=== PATIENT | female | born 1995 | race Caucasian/White ===

== ENCOUNTER 2018-07-26 13:46 | Emergency (ER) | payer SELFPAY ==
[~2018-07-26] VITALS: Ht 160 cm; Wt 63.5 kg
[2018-07-26] MEDS ORDERED: IV NORMAL SALINE 1000ML BAG 1,000 ML IV SCH (14:13)
[2018-07-26] MEDS ORDERED: MORPHINE SULFATE 4 MG/ML VIAL. IV ONE (14:15)
[2018-07-26] MEDS ORDERED: ONDANSETRON PF 4 MG/2 ML VIAL. IV ONE (14:15)
[2018-07-26] MEDS ORDERED: IOHEXOL 240 MG/ML 50ML VIAL. PO ONE (14:30)
[2018-07-26] MEDS ORDERED: IOHEXOL 300 MG/ML 100ML VIAL. IV ONE (14:30)
[2018-07-26] MEDS ORDERED: CONTRAST GIVEN. MC PRN (14:30)
[2018-07-26 14:36] LABS: BASO # 0.1 x10^3/uL (0.0-0.2); BASO % 1 % (0-3); EOS # 0.2 x10^3/uL (0.0-0.7); EOS % 3 % (0-3); HEMATOCRIT 46.2 % (36.0-47.0); LYMPH # 2.8 x10^3/uL (1.0-4.8); LYMPH % 30 % (24-48); MEAN CORPUSCULAR HEMOGLOBIN 32 pg (25-35); MEAN CORPUSCULAR HGB CONC 35 g/dL (31-37); MEAN CORPUSCULAR VOLUME 94 fL (79-100); MONO # 0.8 x10^3/uL (0.0-1.1); MONO % 9 % (0-9); NEUT # 5.3 x10^3uL (1.8-7.7); NEUT % 58 % (31-73); PLATELET COUNT 374 x10^3/uL (140-400); RED BLOOD COUNT 4.93 x10^6/uL (3.50-5.40); RED CELL DISTRIBUTION WIDTH 13.2 % (11.5-14.5); WHITE BLOOD COUNT 9.2 x10^3/uL (4.0-11.0)
[2018-07-26 15:04] LABS: ALBUMIN 4.3 g/dL (3.4-5.0); ALBUMIN/GLOBULIN RATIO 1.2 (1.0-1.7); CALCIUM 9.7 mg/dL (8.5-10.1); CREATININE 1.1 mg/dL (0.6-1.0); GFR 60.5; POTASSIUM 4.4 mmol/L (3.5-5.1); TOTAL BILIRUBIN 1.1 mg/dL (0.2-1.0); TOTAL PROTEIN 7.9 g/dL (6.4-8.2)
--- NOTE | 2018-07-26 15:12 | PHYS DOC ---
Past Medical History Past Medical History: Other Additional Past Medical Histor: ADD (MERLYN ALMAGUER APRN) Past Surgical History: Appendectomy, Tonsillectomy (MERLYN ALMAGUER APRN) Alcohol Use: Heavy Drug Use: None (MERLYN ALMAGUER APRN) Adult General Chief Complaint Chief Complaint: ABDOMINAL PAIN HPI HPI Patient is a 23 year old male who presents with abdominal pain that started this morning. The pain is located in the right lower quadrant and lower pelvic area. Rates the pain as 8 out of 10 and cramping. Has any associated symptoms. Did not do any interventions prior to arrival. (MERLYN ALMAGUER APRN) Review of Systems Review of Systems Constitutional: Denies fever or chills [] Eyes: Denies change in visual acuity, redness, or eye pain [] HENT: Denies nasal congestion or sore throat [] Respiratory: Denies cough or shortness of breath [] Cardiovascular: No additional information not addressed in HPI [] GI: Reports abdominal pain Denies nausea, vomiting, bloody stools or diarrhea [] : Denies dysuria or hematuria [] Musculoskeletal: Denies back pain or joint pain [] Integument: Denies rash or skin lesions [] Neurologic: Denies headache, focal weakness or sensory changes [] Endocrine: Denies polyuria or polydipsia [] Complete systems were reviewed and found to be within normal limits, except as documented in this note. (MERLYN ALMAGUER APRN) Current Medications Current Medications Current Medications Medications (Trade) Dose Ordered Sig/Nicole Start Time Stop Time Status Last Admin Dose Admin Ceftriaxone Sodium (Rocephin) 1 gm 1X ONCE 07/26/18 17:15 07/26/18 17:17 DC 07/26/18 17:51 1 GM Info (CONTRAST GIVEN -- Rx MONITORING) 1 each PRN DAILY PRN 07/26/18 14:30 07/28/18 14:29 Iohexol (Omnipaque 240 Mg/ml) 50 ml 1X ONCE 07/26/18 14:30 07/26/18 14:31 DC 07/26/18 14:30 50 ML Iohexol (Omnipaque 300 Mg/ml) 75 ml 1X ONCE 07/26/18 14:30 07/26/18 14:31 DC 07/26/18 14:30 75 ML Morphine Sulfate (Morphine Sulfate) 4 mg 1X ONCE 07/26/18 14:15 07/26/18 14:19 DC 07/26/18 14:31 4 MG Ondansetron HCl (Zofran) 4 mg 1X ONCE 07/26/18 14:15 07/26/18 14:19 DC 07/26/18 14:31 4 MG Sodium Chloride 1,000 ml @ 1,000 mls/hr Q1H 07/26/18 14:13 07/26/18 15:12 DC 07/26/18 14:30 1,000 MLS/HR (WILMA HA APRN) Allergies Allergies Allergies Coded Allergies Type Severity Reaction Last Updated Verified No Known Drug Allergies 07/26/18 No (WILMA HA APRN) Physical Exam Physical Exam Constitutional: Well developed, well nourished, no acute distress, non-toxic appearance. [] HENT: Normocephalic, atraumatic, bilateral external ears normal, oropharynx moist, no oral exudates, nose normal. [] Eyes: PERRLA, EOMI, conjunctiva normal, no discharge. [] Neck: Normal range of motion, no tenderness, supple, no stridor. [] Cardiovascular:Heart rate regular rhythm, no murmur [] Lungs & Thorax: Bilateral breath sounds clear to auscultation [] Abdomen: Bowel sounds normal, soft, Tenderness to LLQ, periumbilial, and RLQ, no rebound tenderness, no rovsing's sign, no masses, no pulsatile masses. [] Skin: Warm, dry, no erythema, no rash. [] Back: No tenderness, no CVA tenderness. [] Extremities: No tenderness, no cyanosis, no clubbing, ROM intact, no edema. [] Neurologic: Alert and oriented X 3, normal motor function, normal sensory function, no focal deficits noted. [] Psychologic: Affect normal, judgement normal, mood normal. [] (MERLYN ALMAGUER APRN) Current Patient Data Vital Signs Vital Signs Date Time Temp Pulse Resp B/P (MAP) Pulse Ox O2 Delivery O2 Flow Rate FiO2 07/26/18 14:31 28 99 Room Air 07/26/18 13:50 98.4 90 147/100 (116) 98.4 (WILMA HA APRN) Lab Values Laboratory Tests Test 07/26/18 14:05 07/26/18 15:24 White Blood Count 9.2 x10^3/uL (4.0-11.0) Red Blood Count 4.93 x10^6/uL (3.50-5.40) Hemoglobin 16.0 g/dL (12.0-15.5) H Hematocrit 46.2 % (36.0-47.0) Mean Corpuscular Volume 94 fL (79-100) Mean Corpuscular Hemoglobin 32 pg (25-35) Mean Corpuscular Hemoglobin Concent 35 g/dL (31-37) Red Cell Distribution Width 13.2 % (11.5-14.5) Platelet Count 374 x10^3/uL (140-400) Neutrophils (%) (Auto) 58 % (31-73) Lymphocytes (%) (Auto) 30 % (24-48) Monocytes (%) (Auto) 9 % (0-9) Eosinophils (%) (Auto) 3 % (0-3) Basophils (%) (Auto) 1 % (0-3) Neutrophils # (Auto) 5.3 x10^3uL (1.8-7.7) Lymphocytes # (Auto) 2.8 x10^3/uL (1.0-4.8) Monocytes # (Auto) 0.8 x10^3/uL (0.0-1.1) Eosinophils # (Auto) 0.2 x10^3/uL (0.0-0.7) Basophils # (Auto) 0.1 x10^3/uL (0.0-0.2) Sodium Level 141 mmol/L (136-145) Potassium Level 4.4 mmol/L (3.5-5.1) Chloride Level 104 mmol/L (98-107) Carbon Dioxide Level 22 mmol/L (21-32) Anion Gap 15 (6-14) H Blood Urea Nitrogen 8 mg/dL (7-20) Creatinine 1.1 mg/dL (0.6-1.0) H Estimated GFR (Cockcroft-Gault) 60.5 BUN/Creatinine Ratio 7 (6-20) Glucose Level 87 mg/dL (70-99) Calcium Level 9.7 mg/dL (8.5-10.1) Total Bilirubin 1.1 mg/dL (0.2-1.0) H Aspartate Amino Transferase (AST) 14 U/L (15-37) L Alanine Aminotransferase (ALT) 20 U/L (14-59) Alkaline Phosphatase 59 U/L (46-116) Total Protein 7.9 g/dL (6.4-8.2) Albumin 4.3 g/dL (3.4-5.0) Albumin/Globulin Ratio 1.2 (1.0-1.7) Lipase 108 U/L (73-393) Urine Color Yellow Urine Clarity Clear Urine pH 7.0 Urine Specific [place] 1.020 Urine Protein Negative mg/dL (NEG-TRACE) Urine Glucose (UA) Negative mg/dL (NEG) Urine Ketones (Stick) 40 mg/dL (NEG) Urine Blood Large (NEG) Urine Nitrite Positive (NEG) Urine Bilirubin Negative (NEG) Urine Urobilinogen Dipstick 1.0 mg/dL (0.2 mg/dL) Urine Leukocyte Esterase Small (NEG) Urine RBC 3-5 /HPF (0-2) Urine WBC 1-4 /HPF (0-4) Urine Squamous Epithelial Cells Occ /LPF Urine Bacteria Many /HPF (0-FEW) Urine Mucus Mod /LPF Laboratory Tests 07/26/18 14:05 Laboratory Tests 07/26/18 14:05 (WILMA HA APRN) EKG EKG [] (MERLYN ALMAGUER APRN) Radiology/Procedures Radiology/Procedures []PATIENT: SILVER RAPPCCOUNT: [id number]#: [id number] : 1995 LOCATION: ER AGE: 23 SEX: F EXAM STATUS: REG ER ORD. PHYSICIAN: MERLYN ALMAGUER APRN REASON: PELVIC PAIN PROCEDURE: PELVIS W/TV EXAM: PELVIC ULTRASOUND. HISTORY: Pelvic pain. COMPARISON: None. FINDINGS: Sonographic evaluation of the pelvis was performed transabdominally and transvaginally. The uterus is anteverted and measures 7.0 x 4.8 x 3.3 cm. The endometrial stripe measures 4 mm. An intrauterine device is noted in the endocervical canal. No masses are identified. There is no significant free fluid. The right ovary measures 3.1 x 2.5 x 1.7 cm. The left ovary measures 2.9 x 2.2 x 1.6 cm. There is normal Doppler flow bilaterally. There are no suspicious lesions. IMPRESSION: 1. Intrauterine device in the endocervical canal. Correlate with desired placement. Electronically signed by: Wilbert Workman MD (07/26/2018 3:08 PM) [facility] (MERLNY ALMAGUER APRN) Radiology/Procedures PROCEDURE: CT ABD PELV W/ORAL&IV CONTRAST EXAM: Abdomen and pelvis CT with intravenous contrast. HISTORY: Right lower quadrant pain. TECHNIQUE: Computed tomographic images of the abdomen and pelvis were obtained following the administration of 75 cc Omnipaque 300 intravenous contrast. Multiplanar reformatting was performed. *One or more of the following individualized dose reduction techniques were utilized for this examination: 1. Automated exposure control. 2. Adjustment of the mA and/or kV according to patient size. 3. Use of iterative reconstruction technique. COMPARISON: None. FINDINGS: Evaluation of the lower thorax is unremarkable. There is a 5 mm hyperdense lesion within the posterior superior right hepatic lobe, too small to characterize. The gallbladder, pancreas, spleen, adrenal glands and kidneys are unremarkable. There is no appendicitis. There is no bowel obstruction or abnormal bowel wall thickening. There is an intrauterine contraceptive device positioned within the lower uterine segment and endocervical canal. There is trace pelvic free fluid. There is an 8 mm right ovarian follicle. There is no lymphadenopathy. There is no suspicious osseous lesion. IMPRESSION: 1. No acute abdominal or pelvic finding. 2. IUD within the lower uterine segment and endocervical canal. This malpositioning lowers contraceptive efficacy. 3. Tiny hypodense lesion within the right hepatic lobe. In the absence of known malignancy, this is likely a cyst or hemangioma. Electronically signed by: Starr Rodriges MD (07/26/2018 6:00 PM) [facility] DICTATED and SIGNED BY: STARR RODRIGES MD DATE: 07/26/18 1800 (WILMA HA APRN) Course & Med Decision Making Course & Med Decision Making Pertinent Labs and Imaging studies reviewed. (See chart for details) Will get pelvic ultrasound to r/o torsion and CT scan to rule out appendicitis. Will also gets labs, and give supportive care. Patient is agreeable. Labs are unremarkable with exception of urine shows UTI. Will treat with Rocephin and then d/c with script for Keflex. Signed out patient to Scarlett Ha APRN at 1745. (MERLYN ALMAGUER APRN) Course & Med Decision Making 1820: Discussed CT results with patient negative for appendicitis. 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 She reports she has had significant improvement in pain since treatments received in the ER. Patient will be sent home with prescription for Keflex for UTI and was treated with Rocephin. Patient is in no visible distress at this time.Education provided on signs and symptoms to return to ER. Discharge instructions were discussed. Discussed use of [id number] Tylenol and/or ibuprofen when necessary as directed on container. (WILMA HA APRN) Dragon Disclaimer Dragon Disclaimer This electronic medical record was generated, in whole or in part, using a voice recognition dictation system. (MERLYN ALMAGUER APRN) Departure Departure Impression: Primary Impression: Urinary tract infection Disposition: HOME, SELF-CARE Condition: STABLE Referrals: UNKNOWN PCP NAME (PCP) Patient Instructions: Urinary Tract Infection Additional Instructions: Please take all of antibiotics. Follow up with PCP, return to ED as needed. Scripts Cephalexin (KEFLEX) 500 Mg Capsule 1 CAP PO BID for 7 Days, #14 CAP Prov: MERLYN ALMAGUER APRN 07/26/18 Problem Qualifiers Primary Impression: Urinary tract infection Urinary tract infection type: acute cystitis Hematuria presence: without hematuria Qualified Codes: N30.00 - Acute cystitis without hematuria MERLYN ALMAGUER APRN Jul 26, 2018 15:11 WILMA HA APRN Jul 26, 2018 18:29
--- NOTE | 2018-07-26 15:22 | RAD ---
EXAM: PELVIC ULTRASOUND. HISTORY: Pelvic pain. COMPARISON: None. FINDINGS: Sonographic evaluation of the pelvis was performed transabdominally and transvaginally. The uterus is anteverted and measures 7.0 x 4.8 x 3.3 cm. The endometrial stripe measures 4 mm. An intrauterine device is noted in the endocervical canal. No masses are identified. There is no significant free fluid. The right ovary measures 3.1 x 2.5 x 1.7 cm. The left ovary measures 2.9 x 2.2 x 1.6 cm. There is normal Doppler flow bilaterally. There are no suspicious lesions. IMPRESSION: 1. Intrauterine device in the endocervical canal. Correlate with desired placement. Electronically signed by: Wilbert Workman MD (07/26/2018 3:08 PM) [facility]
[2018-07-26 15:37] LABS: BILIRUBIN,URINE NEGATIVE (NEG); CLARITY,URINE CLEAR; COLOR,URINE YELLOW; NITRITE,URINE POSITIVE (NEG); PROTEIN,URINE NEGATIVE (NEG-TRACE)
[2018-07-26 15:55] LABS: BACTERIA,URINE MANY /HPF (0-FEW); SQUAMOUS EPITHELIAL CELL,UR OCC /LPF
[2018-07-26] MEDS ORDERED: CEPH-264 PO (17:13)
[2018-07-26] MEDS ORDERED: cefTRIAXone IV Push 1 GM VIAL. IVP ONE (17:15)
--- NOTE | 2018-07-26 18:03 | RAD ---
EXAM: Abdomen and pelvis CT with intravenous contrast. HISTORY: Right lower quadrant pain. TECHNIQUE: Computed tomographic images of the abdomen and pelvis were obtained following the administration of 75 cc Omnipaque 300 intravenous contrast. Multiplanar reformatting was performed. *One or more of the following individualized dose reduction techniques were utilized for this examination: 1. Automated exposure control. 2. Adjustment of the mA and/or kV according to patient size. 3. Use of iterative reconstruction technique. COMPARISON: None. FINDINGS: Evaluation of the lower thorax is unremarkable. There is a 5 mm hyperdense lesion within the posterior superior right hepatic lobe, too small to characterize. The gallbladder, pancreas, spleen, adrenal glands and kidneys are unremarkable. There is no appendicitis. There is no bowel obstruction or abnormal bowel wall thickening. There is an intrauterine contraceptive device positioned within the lower uterine segment and endocervical canal. There is trace pelvic free fluid. There is an 8 mm right ovarian follicle. There is no lymphadenopathy. There is no suspicious osseous lesion. IMPRESSION: 1. No acute abdominal or pelvic finding. 2. IUD within the lower uterine segment and endocervical canal. This malpositioning lowers contraceptive efficacy. 3. Tiny hypodense lesion within the right hepatic lobe. In the absence of known malignancy, this is likely a cyst or hemangioma. Electronically signed by: Starr Omalley MD (07/26/2018 6:00 PM) [facility]
[2018-07-26 18:25] VITALS: BP 141/87
== END 2018-07-26 18:59 | disposition home or self-care (01) ==
LOC: ER 13:46
DX: N30.00 Acute cystitis without hematuria (principal); F10.20 Alcohol dependence, uncomplicated; Y90.9 Presence of alcohol in blood, level not specified; Z90.89 Acquired absence of other organs
CPT/HCPCS: 36415; 74177; 76830; 76856; 80053; 81001; 81025; 83690; 85025; 96374; 96375; 99285; J0696; J2270; J2405; J7030; Q9966; Q9967

== ENCOUNTER 2019-03-18 18:50 | Emergency (ER) | payer MEDICAID ==
[~2019-03-18] VITALS: Ht 160 cm; Wt 71.4 kg
[~2019-03-18 18:50] MED LIST: CEPH-264 PO
[2019-03-18] MEDS ORDERED: ONDANSETRON PF 4 MG/2 ML VIAL. IV ONE (20:30)
[2019-03-18] MEDS ORDERED: IV NORMAL SALINE 1000ML BAG 1,000 ML IV ONE (20:30)
[2019-03-18] MEDS ORDERED: IPRATRPIUM/ALBUTEROL 0.5/2.5MG 3 ML NEBU. NEB ONE (20:30)
--- NOTE | 2019-03-18 20:43 | PHYS DOC ---
Past Medical History Past Medical History: Other Additional Past Medical Histor: ADD Past Surgical History: Tonsillectomy Alcohol Use: Heavy Drug Use: None Adult General Chief Complaint Chief Complaint: ABDOMINAL PAIN IN HPI HPI Patient is a 24 year old female who presents with sore throat, hoarse voice, runny nose, body aches, loss of appetite, fever that started 2 days ago. The patient also been having nausea. The patient went to urgent care prior to arrival and had a negative flu test. The patient states that she is 9 weeks . Her last menstrual period was on January 12. The patient is unsure how accurate this is as she does have irregular menstrual periods. The patient is a 1. The patient states that she was sent to the ER from the urgent care because she's been having some right lower quadrant abdominal pain. The patient has not seen an QUALITY ASSURANCE MANAGER yet for the . Denies any other symptoms. Complete ROS were reviewed and found to be within normal limits, except as documented in the HPI Current Medications Current Medications Current Medications Medications (Trade) Dose Ordered Sig/Nicole Start Time Stop Time Status Last Admin Dose Admin Albuterol/ Ipratropium (Duoneb) 3 ml 1X ONCE 03/18/19 20:30 03/18/19 20:31 DC Ondansetron HCl (Zofran) 4 mg 1X ONCE 03/18/19 20:30 03/18/19 20:31 DC 03/18/19 21:50 4 MG Sodium Chloride 1,000 ml @ 1,000 mls/hr 1X ONCE 03/18/19 20:30 03/18/19 21:29 DC 03/18/19 21:50 1,000 MLS/HR Allergies Allergies Allergies Coded Allergies Type Severity Reaction Last Updated Verified No Known Drug Allergies 07/26/18 No Physical Exam Physical Exam Constitutional: Well developed, well nourished, no acute distress, non-toxic appearance. [] HENT: Normocephalic, atraumatic, bilateral external ears normal, oropharynx moist, no oral exudates, nose normal. [] Eyes: PERRLA, EOMI, conjunctiva normal, no discharge. [] Neck: Normal range of motion, no tenderness, supple, no stridor. [] Cardiovascular:Heart rate regular rhythm, no murmur [] Lungs & Thorax: Bilateral breath sounds had scattered wheezing. Abdomen: Bowel sounds normal, soft, mild RLQ tenderness, no rebound tenderness, no rovsings sign, no heel tap tenderness, no masses, no pulsatile masses. [] Skin: Warm, dry, no erythema, no rash. [] Neurologic: Alert and oriented X 3, normal motor function, normal sensory function, no focal deficits noted. [] Psychologic: Affect normal, judgement normal, mood normal. [] Current Patient Data Vital Signs Vital Signs Date Time Temp Pulse Resp B/P (MAP) Pulse Ox O2 Delivery O2 Flow Rate FiO2 03/18/19 20:18 99 Room Air 03/18/19 19:25 99.1 78 18 112/66 (81) 99.1 Lab Values Laboratory Tests Test 03/18/19 21:15 03/18/19 21:20 Urine Collection Type Unknown Urine Color Yellow Urine Clarity Clear Urine pH 6.5 Urine Specific [place] 1.025 Urine Protein Negative mg/dL (NEG-TRACE) Urine Glucose (UA) Negative mg/dL (NEG) Urine Ketones (Stick) Negative mg/dL (NEG) Urine Blood Negative (NEG) Urine Nitrite Negative (NEG) Urine Bilirubin Negative (NEG) Urine Urobilinogen Dipstick 1.0 mg/dL (0.2 mg/dL) Urine Leukocyte Esterase Small (NEG) Urine RBC 0 /HPF (0-2) Urine WBC 5-10 /HPF (0-4) Urine Squamous Epithelial Cells Mod /LPF Urine Amorphous Sediment Present /HPF Urine Bacteria Many /HPF (0-FEW) Urine Mucus Mod /LPF White Blood Count 10.4 x10^3/uL (4.0-11.0) Red Blood Count 4.24 x10^6/uL (3.50-5.40) Hemoglobin 14.2 g/dL (12.0-15.5) Hematocrit 39.8 % (36.0-47.0) Mean Corpuscular Volume 94 fL (79-100) Mean Corpuscular Hemoglobin 34 pg (25-35) Mean Corpuscular Hemoglobin Concent 36 g/dL (31-37) Red Cell Distribution Width 13.2 % (11.5-14.5) Platelet Count 271 x10^3/uL (140-400) Neutrophils (%) (Auto) 69 % (31-73) Lymphocytes (%) (Auto) 20 % (24-48) L Monocytes (%) (Auto) 9 % (0-9) Eosinophils (%) (Auto) 2 % (0-3) Basophils (%) (Auto) 1 % (0-3) Neutrophils # (Auto) 7.2 x10^3/uL (1.8-7.7) Lymphocytes # (Auto) 2.1 x10^3/uL (1.0-4.8) Monocytes # (Auto) 0.9 x10^3/uL (0.0-1.1) Eosinophils # (Auto) 0.2 x10^3/uL (0.0-0.7) Basophils # (Auto) 0.1 x10^3/uL (0.0-0.2) Maternal Serum HCG Beta Subunit 47865 mIU/mL (0-5) H Sodium Level 139 mmol/L (136-145) Potassium Level 3.6 mmol/L (3.5-5.1) Chloride Level 103 mmol/L (98-107) Carbon Dioxide Level 25 mmol/L (21-32) Anion Gap 11 (6-14) Blood Urea Nitrogen 9 mg/dL (7-20) Creatinine 0.8 mg/dL (0.6-1.0) Estimated GFR (Cockcroft-Gault) 86.7 BUN/Creatinine Ratio 11 (6-20) Glucose Level 91 mg/dL (70-99) Calcium Level 9.1 mg/dL (8.5-10.1) Magnesium Level 2.0 mg/dL (1.8-2.4) Total Bilirubin 0.1 mg/dL (0.2-1.0) L Aspartate Amino Transferase (AST) 9 U/L (15-37) L Alanine Aminotransferase (ALT) 11 U/L (14-59) L Alkaline Phosphatase 47 U/L (46-116) Total Protein 7.0 g/dL (6.4-8.2) Albumin 3.4 g/dL (3.4-5.0) Albumin/Globulin Ratio 0.9 (1.0-1.7) L Laboratory Tests 03/18/19 21:20 Laboratory Tests 03/18/19 21:20 EKG EKG [] Radiology/Procedures Radiology/Procedures [][facility] [address] [place], [place] [id number] IMAGING REPORT Signed PATIENT: BRAVO RAPP ACCOUNT: [id number] : 1995 LOCATION: ER AGE: 24 SEX: F EXAM STATUS: REG ER ORD. PHYSICIAN: MERLYN ALMAGUER APRN REASON: abdominal pain during PROCEDURE: OB < 14 WKS Exam: Ultrasound OB less than 14 weeks Indication: Abdominal pain Technique: Real-time grayscale and color Doppler images of the pelvis were obtained by the department combination worker. Comparisons: None FINDINGS: Pelvis measures 10.6 x 7.7 x 5.4 cm. Within the endometrium there is a gestational sac, yolk sac and pole which measures 1.9 cm corresponding to 8 weeks 3 days gestation. heart rate is measured at 178 bpm. Right ovary measures 2.9 x 2.4 x 1.9 cm. Left ovary measures 3.0 x 2.6 x 2.0 cm. No free fluid. IMPRESSION: 1. Single live intrauterine gestation measuring 8 weeks 3 days gestation by current ultrasound. LMP is uncertain. 2. Recommend dedicated survey at 18-20 weeks gestation. Electronically signed by: Lazaro Harden MD (03/18/2019 9:06 PM) [facility] DICTATED and SIGNED BY: LAZARO HARDEN MD DATE: 03/18/192105 Course & Med Decision Making Course & Med Decision Making Pertinent Labs and Imaging studies reviewed. (See chart for details) I suspect that the patient has the Flu even though the Flu test at Urgent care was negative. Will place on Tamiflu, prescribe Zofran, and inhaler. Will get labs, UA, and ultrasound in ER. Will give Fluids, Breathing treatment, and nausea medication. The patient appears to have the Flu clinically. Discussed with patient the importance of drinking plenty of fluids. I also discussed the importance of rest. It was discussed with the patient that she is contagious and to stay away from others until it has been a week since the start of her symptoms. Discussed with the patient that she can take Zyrtec per label instructions for runny nose. Also discussed the proper control of fever by taking Tylenol at home. Will also prescribe Zofran for nausea. Will also prescribe Tamiflu. IMPRESSION: 1. Single live intrauterine gestation measuring 8 weeks 3 days gestation by current ultrasound. LMP is uncertain. 2. Recommend dedicated survey at 18-20 weeks gestation. Electronically signed by: Lazaro Harden MD (03/18/2019 9:06 PM) [facility] Shruti Disclaimer Shruti Disclaimer This electronic medical record was generated, in whole or in part, using a voice recognition dictation system. Departure Departure Impression: Primary Impression: Urinary tract infection Additional Impressions: Abdominal pain during Viral syndrome Disposition: 01 HOME, SELF-CARE Condition: STABLE Referrals: UNKNOWN PCP NAME (PCP) JIM ALBA MD Patient Instructions: Abdominal Pain During , Influenza A (H1N1), - Urinary Tract Infection Additional Instructions: Thank you for visiting [facility]. We appreciate you trusting us with your care. If any additional problems come up don't hesitate to return to visit us. Please follow up with your primary care provider so they can plan additional care if needed and know about the problem that you had. If symptoms worsen come back to the Emergency Department. Any concerning symptoms that start such as chest pain, shortness of air, weakness or numbness on one side of the body, running high fevers or any other concerning symptoms return to the ER. Please fill your medications at any pharmacy and follow the prescription instructions. Please drink plenty of fluids. If unable to keep fluids down please return to ER. Please get Tylenol over the counter. Give each medication every 6 hours as directed by the medication labels. In order to utilize the peak of the medications stagger the medications to where the child is getting one of the medications every 3 hours. Please get Zyrtec over the counter and take per label instructions for runny nose. You have been prescribed an antibiotic today to help fight your infection. Please take all of the antibiotic as directed. If after 48 hours the infection is not improving, please return for more care. If the infection worsens, return to ER for additional care. Scripts Albuterol Sulfate (PROAIR HFA INHALER) 8.5 Gm Hfa.aer.ad 2 PUFF IH PRN Q4-6HRS PRN for wheezing for 21 Days, #1 INHALER 0 Refills Prov: MERLYN ALMAGUER APRN 03/18/19 Oseltamivir Phosphate (TAMIFLU) 75 Mg Capsule 75 MG PO BID for FLU for 5 Days, #10 TAB 0 Refills Prov: MERLYN ALMAGUER APRN 03/18/19 Ondansetron (ONDANSETRON ODT) 4 Mg Tab.rapdis 1 TAB PO PRN Q6-8HRS PRN for NAUSEA, #16 TAB Prov: MERLYN ALMAGUER APRN 03/18/19 Cephalexin (KEFLEX) 500 Mg Capsule 1 CAP PO BID for 7 Days, #14 CAP Prov: MERLYN ALMAGUER APRN 03/18/19 Problem Qualifiers Primary Impression: Urinary tract infection Urinary tract infection type: acute cystitis Hematuria presence: without hematuria Qualified Codes: N30.00 - Acute cystitis without hematuria Additional Impressions: Abdominal pain during Trimester: first trimester Qualified Codes: O26.891 - Other specified related conditions, first trimester; R10.9 - Unspecified abdominal pain MERLYN ALMAGUER APRN Mar 18, 2019 20:43
--- NOTE | 2019-03-18 21:09 | RAD ---
Exam: Ultrasound OB less than 14 weeks Indication: Abdominal pain Technique: Real-time grayscale and color Doppler images of the pelvis were obtained by the department sap bw developer. Comparisons: None FINDINGS: Pelvis measures 10.6 x 7.7 x 5.4 cm. Within the endometrium there is a gestational sac, yolk sac and pole which measures 1.9 cm corresponding to 8 weeks 3 days gestation. heart rate is measured at 178 bpm. Right ovary measures 2.9 x 2.4 x 1.9 cm. Left ovary measures 3.0 x 2.6 x 2.0 cm. No free fluid. IMPRESSION: 1. Single live intrauterine gestation measuring 8 weeks 3 days gestation by current ultrasound. LMP is uncertain. 2. Recommend dedicated survey at 18-20 weeks gestation. Electronically signed by: Lazaro Lange MD (03/18/2019 9:06 PM) [facility]
[2019-03-18 21:30] LABS: BASO # 0.1 x10^3/uL (0.0-0.2); BASO % 1 % (0-3); EOS # 0.2 x10^3/uL (0.0-0.7); EOS % 2 % (0-3); HEMATOCRIT 39.8 % (36.0-47.0); HEMOGLOBIN 14.2 g/dL (12.0-15.5); LYMPH # 2.1 x10^3/uL (1.0-4.8); LYMPH % 20 % (24-48); MEAN CORPUSCULAR HEMOGLOBIN 34 pg (25-35); MEAN CORPUSCULAR HGB CONC 36 g/dL (31-37); MEAN CORPUSCULAR VOLUME 94 fL (79-100); MONO # 0.9 x10^3/uL (0.0-1.1); MONO % 9 % (0-9); NEUT # 7.2 x10^3/uL (1.8-7.7); NEUT % 69 % (31-73); PLATELET COUNT 271 x10^3/uL (140-400); RED BLOOD COUNT 4.24 x10^6/uL (3.50-5.40); RED CELL DISTRIBUTION WIDTH 13.2 % (11.5-14.5); WHITE BLOOD COUNT 10.4 x10^3/uL (4.0-11.0)
[2019-03-18 21:33] LABS: BILIRUBIN,URINE NEGATIVE (NEG); CLARITY,URINE CLEAR; COLOR,URINE YELLOW; NITRITE,URINE NEGATIVE (NEG); PH,URINE 6.5; PROTEIN,URINE NEGATIVE (NEG-TRACE)
[2019-03-18 21:35] LABS: CALCIUM 9.1 mg/dL (8.5-10.1); CREATININE 0.8 mg/dL (0.6-1.0); GFR 86.7; POTASSIUM 3.6 mmol/L (3.5-5.1)
[2019-03-18 21:38] LABS: SQUAMOUS EPITHELIAL CELL,UR MOD /LPF
[2019-03-18 21:39] LABS: AMORPHOUS SEDIMENT,UR PRESENT /HPF; BACTERIA,URINE MANY /HPF (0-FEW); RBC,URINE 0 /HPF (0-2)
[2019-03-18 21:43] LABS: ALBUMIN 3.4 g/dL (3.4-5.0); ALBUMIN/GLOBULIN RATIO 0.9 (1.0-1.7); TOTAL BILIRUBIN 0.1 mg/dL (0.2-1.0)
[2019-03-18] MEDS ORDERED: OSEL75CA PO (22:20)
[2019-03-18] MEDS ORDERED: ONDA4TAB12 PO (22:20)
[2019-03-18] MEDS ORDERED: CEPH-264 PO (22:20)
[2019-03-18] MEDS ORDERED: ALBU2.5V8 IH (22:26)
[2019-03-18 22:30] VITALS: BP 121/81
--- NOTE | 2019-03-21 07:02 | EKG ---
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
== END 2019-03-18 22:30 | disposition home or self-care (01) ==
LOC: ER 18:50
DX: O23.41 Unspecified infection of urinary tract in pregnancy, first trimester (principal); R10.31 Right lower quadrant pain; B34.9 Viral infection, unspecified; R50.9 Fever, unspecified; N92.6 Irregular menstruation, unspecified; R63.0 Anorexia; F10.10 Alcohol abuse, uncomplicated; Z90.89 Acquired absence of other organs; Z3A.08 8 weeks gestation of pregnancy
CPT/HCPCS: 36415; 76801; 80053; 81001; 83735; 84702; 85025; 86900; 86901; 87086; 94640; 96374; 99285; J2405; J7030; J7620; 93005

== ENCOUNTER 2019-06-26 19:11 | Emergency (ER) | payer MEDICAID ==
[~2019-06-26] VITALS: Ht 162.6 cm; Wt 70.5 kg
[~2019-06-26 19:11] MED LIST changes: +ALBU2.5V8 IH; +ONDA4TAB12 PO; +OSEL75CA PO
[2019-06-26 19:25] VITALS: BP 110/76
[2019-06-26] MEDS ORDERED: ONDANSETRON ODT 4 MG TAB.RAPDIS. PO ONE (19:45)
--- NOTE | 2019-06-26 19:53 | PHYS DOC ---
Past Medical History Past Medical History: Other Additional Past Medical Histor: ADD Past Surgical History: Tonsillectomy Smoking Status: Current Every Day Smoker Alcohol Use: Heavy Drug Use: None General Adult EDM: Chief Complaint: ANIMAL BITE HPI: HPI: Patient is a 24 year old female who presents with dog bite to her face. Patient indicates that dog is up-to-date on shots and is a puppy. She states that she wa s playing with puppy but she had the puppy's toy and it bit her. Patient denies any other injuries.[] Review of Systems: Review of Systems: Constitutional: Denies fever or chills. [] Respiratory: Denies cough or shortness of breath. [] Cardiovascular: Denies chest pain or edema. [] Integument: Positive facial laceration. [] Neurologic: Denies headache, focal weakness or sensory changes. [] Heart Score: Risk Factors: Risk Factors: DM, Current or recent (<one month) smoker, HTN, HLP, family history of CAD, obesity. Risk Scores: Score 0 - 3: 2.5% MACE over next 6 weeks - Discharge Home Score 4 - 6: 20.3% MACE over next 6 weeks - Admit for Clinical Observation Score 7 - 10: 72.7% MACE over next 6 weeks - Early Invasive Strategies Current Medications: Current Medications Medications (Trade) Dose Ordered Sig/Nicole Start Time Stop Time Status Last Admin Dose Admin Ondansetron HCl (Zofran Odt) 4 mg 1X ONCE 06/26/19 19:45 06/26/19 19:46 DC Allergies: Allergies: Allergies Coded Allergies Type Severity Reaction Last Updated Verified No Known Drug Allergies 07/26/18 No Physical Exam: PE: Constitutional: Well developed, well nourished, no acute distress, non-toxic appearance. [] HENT: Normocephalic, with one similar laceration to just above the upper lip on the right, extending through subcutaneous tissue. Laceration in shape of a V with no active bleeding. Margins are sharp. [] Cardiovascular:Heart rate regular rhythm, no murmur [] Lungs & Thorax: Bilateral breath sounds clear to auscultation [] Skin: Warm, dry, with laceration as above. [] EKG: EKG: [] Radiology/Procedures: Radiology/Procedures: [] Course & Med Decision Making: Course & Med Decision Making Pertinent Labs and Imaging studies reviewed. (See chart for details) Laceration Repair by me: Anesthesia: 1% lidocaine locally Location: Just above upper lip on right side Tendon/Joint/Nerves: No injury Foreign body: None detected after copious irrigation and exploration Technique: 1 Simple Interrupted Suture placed at the apex of the V with good reapproximation of wound margins. No other sutures were placed given that this was a dog bite. Complexity: No subcutaneous sutures/mucosal repair/edge excision Post Closure Length: 1 cm Patient's bleeding was easily controlled in the department and there is no indication of anemia. No evidence of compartment syndrome, neurologic injury, vascular injury, open joint, tendon laceration, or foreign body. Patient is appropriate for outpatient follow up. 48 hour wound check. Scar minimization instructions given. Shruti Disclaimer: Shruti Disclaimer: This electronic medical record was generated, in whole or in part, using a voice recognition dictation system. Departure Departure Impression: Primary Impression: Dog bite of face Qualified Codes: S01.85XA - Open bite of other part of head, initial encounter; W54.0XXA - Bitten by dog, initial encounter Disposition: HOME, SELF-CARE Condition: STABLE Referrals: UNKNOWN PCP NAME (PCP) Patient Instructions: Animal Bite Additional Instructions: Return for suture removal in 5 to 7 days. LISA ALBA Jr. DO June 26, 2019 19:53
[2019-06-26] MEDS ORDERED: AMOXICILLIN/K CLAV 875/125MG TABLET. PO ONE (20:00)
[2019-06-26] MEDS ORDERED: AMOX1TAB61 PO (20:04)
== END 2019-06-26 20:10 | disposition home or self-care (01) ==
LOC: ER 19:11
DX: S01.511A Laceration without foreign body of lip, initial encounter (principal); F17.200 Nicotine dependence, unspecified, uncomplicated; W54.0XXA Bitten by dog, initial encounter; Y93.89 Activity, other specified; Y92.89 Other specified places as the place of occurrence of the external cause; Y99.8 Other external cause status
CPT/HCPCS: 12011; 99283; Q0162

== ENCOUNTER 2019-08-11 07:59 | Observation (INO) | payer MEDICAID ==
[~2019-08-11 07:59] MED LIST changes: +AMOX1TAB61 PO
[2019-08-11] MEDS ORDERED: IV RINGERS,LACTATED 1000ML 1,000 ML IV SCH (08:18)
[2019-08-11 08:42] LABS: BILIRUBIN,URINE NEGATIVE (NEG); CLARITY,URINE CLOUDY; COLOR,URINE YELLOW; NITRITE,URINE NEGATIVE (NEG); PROTEIN,URINE NEGATIVE (NEG-TRACE)
[2019-08-11 08:49] LABS: BARBITURATES NEG (NEG); BENZODIAZEPINES NEG (NEG); CANNABINOIDS NEG (NEG); COCAINE NEG (NEG); METHADONE NEG (NEG); OPIATES NEG (NEG); PHENCYCLIDINE NEG (NEG)
[2019-08-11 08:51] LABS: AMPHETAMINE/METHAMPHETAMINE NEG (NEG)
[2019-08-11 08:52] LABS: BACTERIA,URINE MANY /HPF (0-FEW); RBC,URINE OCC /HPF (0-2); SQUAMOUS EPITHELIAL CELL,UR FEW /LPF; WBC,URINE >40 /HPF (0-4)
== END 2019-08-11 10:37 | disposition home or self-care (01) ==
LOC: 3 SO LND 07:59
PROVIDERS: ADMIT Obstetrics & Gynecology; ATTEND Obstetrics & Gynecology
DX: O21.2 Late vomiting of pregnancy (principal); O26.893 Other specified pregnancy related conditions, third trimester; R10.2 Pelvic and perineal pain; M54.5 Low back pain; R20.2 Paresthesia of skin; Z3A.29 29 weeks gestation of pregnancy; Z79.899 Other long term (current) drug therapy
CPT/HCPCS: 80307; 81001; 87086; G0378; G0379

== ENCOUNTER 2020-12-28 16:11 | Emergency (ER) | payer SELFPAY ==
[~2020-12-28] VITALS: Ht 160 cm; Wt 70.4 kg
[2020-12-28 18:17] VITALS: BP 139/77
[2020-12-28] MEDS ORDERED: IBUP-1007 PO (18:36)
[2020-12-28] MEDS ORDERED: CYCL10TA19 PO (18:36)
--- NOTE | 2020-12-28 18:36 | PHYS DOC ---
Past Medical History Past Medical History: No Pertinent History Additional Past Medical Histor: ADD (VIVIANE ZHAO MANAGER COMMUNITY DEVELOPMENT) Past Surgical History: Tonsillectomy (VIVIANE ZHAO MANAGER [employer]ELOPMENT) Smoking Status: Never Smoker Alcohol Use: None Drug Use: None (VIVIANE ZHAO MANAGER COMMUN[employer] DEVELOPMENT) General Adult EDM: Chief Complaint: HEADACHE HPI: HPI: Patient is a 25 year old female who presents with Left neck stiffness and sharp shooting pains with movement x 24 hours. 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 She states it feels like nerve pain or a tight muscle. She denies fever, nausea, vomiting, diarrhea, abdominal pain, back pain, body aches, chills, cough, shortness of breath, throat pain, chest pain, vision change. She rates her pain a 7 out of 10. Denies past medical history. (VIVIANE ZHAO MANAGER COMMUNITY DEVELOPMENT) Review of Systems: Review of Systems: Constitutional: Denies fever or chills. [] Eyes: Denies change in visual acuity. [] HENT: Denies nasal congestion or sore throat. [] Respiratory: Denies cough or shortness of breath. [] Cardiovascular: Denies chest pain or edema. [] GI: Denies abdominal pain, nausea, vomiting, bloody stools or diarrhea. [] : Denies dysuria. [] Musculoskeletal: Denies back pain or joint pain. +Left neck stiffness and jorge p shooting pains with movement. [] Integument: Denies rash. [] Neurologic: Denies headache, focal weakness or sensory changes. [] Endocrine: Denies polyuria or polydipsia. [] Lymphatic: Denies swollen glands. [] Psychiatric: Denies depression or anxiety. [] (VIVIANE ZHAO MANAGER COMMUN[employer]ELOPMENT) Heart Score: C/O Chest Pain: No (VIVIANE ZHAO MANAGER COMM[employer]ELOPMENT) Allergies: Allergies: Allergies Coded Allergies Type Severity Reaction Last Updated Verified No Known Drug Allergies 12/28/20 No (VIVIANE ZHAO MANAGER COMM[employer]ELOPMENT) Physical Exam: PE: Constitutional: Well developed, well nourished, no acute distress, non-toxic appearance. [] HENT: Normocephalic, atraumatic, bilateral external ears normal, oropharynx moist, no oral exudates, nose normal. [] Eyes: PERRLA, EOMI, conjunctiva normal, no discharge. [] Neck: Normal range of motion, no tenderness, supple, no stridor. [] Cardiovascular:Heart rate regular rhythm, no murmur [] Lungs & Thorax: Bilateral breath sounds clear to auscultation [] Abdomen: Bowel sounds normal, soft, no tenderness, no masses, no pulsatile masses. [] Skin: Warm, dry, no erythema, no rash. [] Back: No tenderness, no CVA tenderness. [] Extremities: No tenderness, no cyanosis, no clubbing, ROM intact, no edema. [] Neurologic: Alert and oriented X 3, normal motor function, normal sensory function, no focal deficits noted. [] Psychologic: Affect normal, judgement normal, mood normal. [] Normal physical exam (VIVIANE ZHAO APRN) EKG: EKG: [] (VIVIANE ZHAO APRN) Radiology/Procedures: Radiology/Procedures: [] (VIVIANE ZHAO APRN) Course & Med Decision Making: Course & Med Decision Making Pertinent Labs and Imaging studies reviewed. (See chart for details) See HPI. Alert and oriented x4. Ambulatory steady gait. Speaks in full clear sentences. No focal bony spinal tenderness. Full range of motion of the neck. When she turns her neck to look right it is painful because it pulls on the left part of her neck. She states it does not hurt as much looking left. No tenderness to her neck. PERRLA. Afebrile. Full range of motion of all of her extremities. Equal strength and market development executive. No numbness or tingling. Sensations intact. Radial pulse strong are present. Cap refill less than 2 seconds. No extremity edema. Denies injury. (VIVIANE ZHAO APRN) Shruti Disclaimer: Shruti Disclaimer: This electronic medical record was generated, in whole or in part, using a voice recognition dictation system. (VIVIANE ZHAO APRN) Departure Departure Impression: Primary Impression: Torticollis, unspecified Disposition: HOME / SELF CARE / HOMELESS Condition: STABLE Referrals: NO PCP (PCP) Patient Instructions: Torticollis, Acute Additional Instructions: Follow-up with primary care provider if needed. Take medication as prescribed. These medications can make you tired so do not use it while driving or working. Try not to raise anything up above the shoulder. Use a heating pad. If symptoms worsen or you start running a fever you need to return emergency room. Scripts Cyclobenzaprine Hcl (CYCLOBENZAPRINE HCL) 10 Mg Tablet 1 TAB PO TID, #15 TAB Prov: VIVIANE ZHAO APRN 12/28/20 Ibuprofen (IBUPROFEN) 600 Mg Tablet 600 MG PO PRN Q6HRS PRN for INFLAMMATION, #26 TAB Prov: VIVIANE ZHAO APRN 12/28/20 Attending Signature Attending Signature I have reviewed the PA/PRODUCT DEVELOPMENT CONSULTANT's note and plan of care. I was available for consultation as needed during the patient's visit in the emergency department. I agree with the clinical impression, plan, and disposition. (MERLYN VELEZ DO) VIVIANE ZHAO APRN Dec 28, 2020 18:36 MERLYN VELEZ DO Dec 29, 2020 01:44
== END 2020-12-28 18:43 | disposition home or self-care (01) ==
LOC: ER 16:11
DX: M43.6 Torticollis (principal)
CPT/HCPCS: 99283